=== PATIENT | male | born 1995 | race Caucasian/White ===

== ENCOUNTER 2021-04-11 00:12 | Outpatient (CLI) | payer OTHER | END 2021-04-11 00:13 | disposition critical access hospital (66) | LOC: EMS 00:12 | DX: S61.411A Laceration without foreign body of right hand, initial encounter (principal); W01.110A Fall on same level from slipping, tripping and stumbling with subsequent striking against sharp glass, initial encounter; Y92.009 Unspecified place in unspecified non-institutional (private) residence as the place of occurrence of the external cause | CPT/HCPCS: A0425; A0429 ==

== ENCOUNTER 2021-04-11 00:38 | Emergency (ER) | payer OTHER ==
[2021-04-11 01:02] VITALS: BP 151/96
== END 2021-04-11 01:18 | disposition left against medical advice (07) ==
LOC: ED 00:38
DX: Z53.21 Procedure and treatment not carried out due to patient leaving prior to being seen by health care provider (principal)